=== PATIENT | male | born 1980 | race Two or more races ===

== ENCOUNTER 2024-04-12 12:15 | Outpatient (CLI) | payer OTHER | END 2024-04-12 23:59 | disposition home or self-care (01) | LOC: MRI 12:15 | PROVIDERS: ATTEND Nurse Practitioner | DX: S67.21XA Crushing injury of right hand, initial encounter (principal); X58.XXXA Exposure to other specified factors, initial encounter; Y93.89 Activity, other specified; Y92.89 Other specified places as the place of occurrence of the external cause; Y99.8 Other external cause status | CPT/HCPCS: 73221 ==